=== PATIENT | female | born 1965 | race Caucasian/White ===

== ENCOUNTER 2022-07-13 14:08 | Outpatient (REF) | payer OTHER, SELFPAY ==
--- NOTE | ~2022-07-13 | XR_ITS ---
EXAMINATION: XR lumbar spine 4V min CLINICAL INFORMATION: Reason for Exam M54.40 - Lumbago with sciatica, unspecified side COMPARISON: 08/25/2019 TECHNIQUE: 4 views of the lumbar spine FINDINGS: Evaluation is markedly limited secondary to motion artifact. 5 nonrib-bearing lumbar-type vertebral bodies. Vertebral body heights are maintained. Grade 2 anterolisthesis of L4 L3 on L4 with loss of disc space height and endplate sclerosis. No subluxation between flexion and extension views. Moderate multilevel degenerative disc disease with loss of disc space height, facet arthropathy and disc osteophyte complexes. Atherosclerotic calcifications of the abdominal aorta. XR/XR lumbar spine 4V min IMPRESSION: 1. Moderate spondylosis of the lumbar spine, as above detailed. 2. Spondylolisthesis, as above detailed.
== END 2022-07-13 14:09 | disposition home or self-care (01) ==
LOC: HO.HOSX 14:08
PROVIDERS: PCP Hospitalist; Visit Provider Physician Assistant
DX: M54.40 Lumbago with sciatica, unspecified side (principal)
CPT/HCPCS: 72110